=== PATIENT | male | born 1990 | race African-American/Black ===

== ENCOUNTER 2018-09-15 00:28 | Emergency (ER) | payer SELFPAY ==
[~2018-09-15] VITALS: Ht 172.7 cm; Wt 63.0 kg
--- NOTE | 2018-09-15 00:50 | NUR ---
Pt BIBRA because significant other found pt lying on the floor after drinking alcohol. Pt states "he was just laying on the ground and fell asleep" VSS. NAD. Respirations even and unlabored. AxOx4
--- NOTE | 2018-09-15 01:30 | NUR ---
Patient is resting comfortably in bed with eyes closed. Easily aroused. VSS
--- NOTE | 2018-09-15 02:15 | NUR ---
Patient is resting comfortably in bed with eyes closed. Easily aroused. VSS
--- NOTE | 2018-09-15 03:23 | NUR ---
PT left without discharge instructions. AxOx4. Steady Gait noted. Pt left with mom.
[2018-09-15 03:25] VITALS: BP 120/74
== END 2018-09-15 03:28 | disposition home or self-care (01) ==
LOC: ER 00:30
DX: F10.129 Alcohol abuse with intoxication, unspecified (principal); Y90.9 Presence of alcohol in blood, level not specified
CPT/HCPCS: 99283; A4606; Z7610